=== PATIENT | male | born 1955 | race Caucasian/White ===

== ENCOUNTER → 2016-10-03 | Outpatient (CLI) | payer MEDICARE, OTHER ==
[~2016-10-03] MED LIST: AMOX1TAB12 PO; AMOX500C2 PO; CYCL10TA9 PO; DOCU250C75 PO; DULO20CA PO; DULO30CA48 PO; ETAN50DI2 SQ; HYDR-3812 PO; MORP-33 PO; MORP15TA69 PO; NAPR500T3 PO; NAPR500T8 PO; PANT40TA2 PO; SUCR1TAB36 PO
--- NOTE | 2016-10-03 08:47 | Diagnostic Imaging Report ---
PROCEDURE: CT chest without contrast. TECHNIQUE: Multiple contiguous axial images were obtained through the chest without the use of intravenous contrast. INDICATION: Cough. COPD. FINDINGS: There are prominent emphysematous changes. There is minimal atelectasis or scarring in the posterior right lung base and a small area of atelectasis or scarring in the medial posterior left lung base. There is no significant consolidation or mass otherwise. There is no significant pleural or pericardial effusion. There is no mediastinal mass. No mediastinal lymphadenopathy. The dhaval are not opacified on this unenhanced exam with no obvious hilar mass. Nonspecific borderline sized axillary lymph nodes are seen measuring up to 1.1 cm on the right and 1 cm on the left when measured in short axis. There is a very minimal amount of subcutaneous fat overall. The osseous structures appear grossly unremarkable. IMPRESSION: Emphysema. Minimal atelectasis or scarring in the lung bases. Dictated by: Dictated on workstation # [id number]
== END ==
LOC: RAD 08:11
PROVIDERS: ATTEND Allergy & Immunology
DX: R05 Cough (principal)
CPT/HCPCS: 71250

== ENCOUNTER → 2017-01-16 | Outpatient (CLI) | payer MEDICARE, OTHER ==
[~2017-01-16] MED LIST changes: +DULO30CA3 PO; +HYDR-3820 PO
--- NOTE | 2017-01-16 16:17 | Diagnostic Imaging Report ---
EXAMINATION: Bone survey. INDICATION: Bone pain. FINDINGS: The skull, the cervical spine, the thoracic and lumbar spine demonstrate no lytic lesion or mass. There is no significant abnormality in the ribs. The upper extremities also appear unremarkable. No focal osseous lesion seen in the pelvis. Prominent degenerative changes in the hip joints worse on the left side and suggestion of left SI joint fusion is seen. Degenerative changes in the knee joints also noted, otherwise the lower extremities on both sides demonstrate no focal discrete mass. IMPRESSION: Degenerative changes in the hip joints worse on the left side and suggestion of fusion of the left SI joint noted. Dictated by: Dictated on workstation # [id number]
== END ==
LOC: RAD 14:01
PROVIDERS: ATTEND Family Medicine
DX: M16.0 Bilateral primary osteoarthritis of hip (principal)
CPT/HCPCS: 77075

== ENCOUNTER → 2017-01-29 | Outpatient (CLI) | payer MEDICARE, OTHER ==
[~2017-01-29] MED LIST changes: -NAPR500T3 PO; +NAPR500T4 PO
--- NOTE | 2017-01-29 15:47 | Diagnostic Imaging Report ---
EXAMINATION: PET-CT TECHNIQUE: Serum glucose level at the time of the study is: 127 mg/dL. 13.1 mCi of FDG was administered intravenously followed by obtaining PET images with corresponding noncontrast CT scan images. The CT scan was performed for anatomic correlation and attenuation correction and was not performed according to the diagnostic protocol of the areas covered. The scan was performed from the head to mid thighs. INDICATION: Abnormal weight loss. FINDINGS: There is symmetric FDG uptake in the brain. There is mild asymmetric FDG uptake in the nasopharynx seen with no definitive asymmetry seen on the correlating localizer CT scan, probably physiologic or inflammatory related. There is minimal hypermetabolism noted in mildly enlarged lymph nodes within the axillae with maximum SUV levels below 3. Etiology is indeterminate. The largest lymph node in the right axilla is 2.6 x 1.2 cm in maximum axial dimensions. Slightly smaller left axillary lymph nodes are seen. There is minimal hypermetabolism also noted in the right hilum. Emphysema changes are seen in the lungs. There is no hypermetabolic mass seen within the lungs. There is prominent FDG uptake seen in the cecum and ascending colon with no definite underlying mass seen on the localizer CT. This is associated with maximum SUV of 7. Urinary tract excretion of the tracer is also seen with intense activity in the bladder and the renal collecting system. There is no definite hypermetabolic mass in the abdomen seen. There is minimal FDG uptake seen along the medial aspect of the skin and subcutaneous tissues in the arms also noted. Minimal areas of activity are also seen involving the shoulders, the elbows and the wrists. This could relate to mild arthritis. IMPRESSION: 1. Nonspecific minimally enlarged lymph nodes in the axillae bilaterally with slight hypermetabolism. There is also slight nonspecific hypermetabolism along the subcutaneous tissues in the medial aspect of the arm on both sides. Correlate for possible underlying cellulitis or dermatitis. Mildly enlarged lymph nodes with minimally increased FDG uptake can be seen in some indolent lymphomas. 2. Emphysema. 3. Moderate intensity of uptake seen in the cecum and ascending colon is probably physiologic. Evaluation with colonoscopy is recommended to ensure lack of associated underlying mucosal mass. 4. Mild increased activity is seen in joints around the shoulders, the wrists, and the MCP joints. Correlate for potential underlying inflammatory arthritis. Dictated by: Dictated on workstation # [id number]
== END ==
LOC: RAD 10:42
PROVIDERS: ATTEND Internal Medicine Hematology & Oncology
DX: J43.9 Emphysema, unspecified (principal); R63.4 Abnormal weight loss; M54.2 Cervicalgia; R59.0 Localized enlarged lymph nodes

== ENCOUNTER → 2017-01-30 | Outpatient (CLI) | payer MEDICARE, OTHER ==
[~2017-01-30] MED LIST changes: +BARIUM SUSPENSION 2.1% (VANILLA SILQ) 450 ML PO ONE; +CATHETER FLUSH 10 ML SYR IV PRN; -DULO30CA3 PO; +GADOBUTROL 10 MMOL/10 ML (GADAVIST) VIAL IV ONE; -HYDR-3820 PO; +IOHEXOL 350 MG/ML 100 ML (OMNIPAQUE 350) VIAL IV ONE; +NAPR500T3 PO; -NAPR500T4 PO; +NS 100 ML (IVPB) BAG IV ONE
--- NOTE | 2017-01-30 13:45 | Diagnostic Imaging Report ---
PROCEDURE: CT chest with contrast, CT abdomen and pelvis with and without contrast. TECHNIQUE: Pre and post intravenous contrast axial imaging of the abdomen and pelvis and post contrast axial imaging of the chest were performed. INDICATION: Weight loss. Neck pain. Adenopathy. 100 mL of Omnipaque 350 is administered intravenously. FINDINGS: CT chest: Prominent emphysema changes are seen in the lungs. There is minimal atelectasis or scarring in the right lung base. No significant consolidation or mass. No suspicious pulmonary nodule. The thoracic aorta is normal in caliber. The heart size is normal. There is no pericardial or pleural effusion. There is a mildly enlarged right hilar lymph node measuring 1.2 cm and mildly enlarged subaortic lymph node measuring 1.4 cm in size. Borderline aortopulmonary window lymph node measuring 0.9 cm in size is seen. There are bilateral mildly enlarged axillary lymph nodes up to 1.4 cm in the right axilla and 1.2 cm in the left axilla. All these lymph node measurements are obtained in short axis. There is very minimal degree of FDG uptake seen on recent PET in these mildly enlarged lymph nodes. This may favor inflammatory or infectious etiology. Low-grade indolent lymphomas can, however, be associated with such imaging picture. CT abdomen and pelvis: The liver, the gallbladder, the spleen, the pancreas and the adrenal glands appear unremarkable. The kidneys have symmetric enhancement and contrast excretion. There is no hydronephrosis. The unenhanced phase demonstrates nonobstructive kidney stones up to 4 mm in the lower pole of the left kidney and 2 mm stone in the mid left kidney. There is a mild infrarenal abdominal aortic aneurysm measuring 2.5 cm in caliber. There is ectasia of the common iliac arteries also noted. There is a nonspecific minimally enlarged 1.2 cm left para-aortic lymph node seen below the renal vessels level. Note on the recent PET of increased FDG uptake in the cecum and ascending colon is seen. This has mixed fecal material and oral contrast on this exam with no definite underlying mass noted. Colonoscopy evaluation can be helpful. The prostate is enlarged measuring 6 cm in transverse dimension. Tiny amount of pelvic free fluid is seen. The osseous structures demonstrate early fusion of the SI joints. IMPRESSION: CT chest: 1. Emphysema. 2. Minimally enlarged axillary, mediastinal and right hilar lymph nodes. These demonstrated minimal hypermetabolism on recent PET. This may favor inflammatory or infectious etiology, although indolent low-grade lymphomas could have such imaging features. CT abdomen and pelvis: 1. Minimally enlarged left para-aortic lymph node up to 1.2 cm in size is seen. 2. Mild aneurysmal dilatation/ectasia of the infra-abdominal aorta up to 2.5 cm in size. 3. Enlarged prostate. 4. Fused SI joints. Dictated by: Dictated on workstation # [id number]
--- NOTE | 2017-01-30 14:09 | Diagnostic Imaging Report ---
PROCEDURE: MR imaging cervical spine with and without contrast. TECHNIQUE: Multiplanar and multisequence MRI of the cervical spine was performed with and without contrast. INDICATION: Neck pain. 5 mL of Gadovist is administered intravenously. FINDINGS: The alignment of the cervical spine is satisfactory. The vertebral body heights are preserved. There is disc desiccation at all levels with no significant disc height loss. The bone marrow signal demonstrates minimal heterogeneity with no suspicious focal lesion, however. There is suggestion of fusion of the facet joints bilaterally at C5/C6 level and right facet fusion of C2-C4 levels. Also C2/C3 facet joint on the left appears to be fused. The vertebral bodies demonstrate no definite fusion. There is normal caliber and contour and signal of the spinal cord. There is a slight deformity of the upper aspect of the odontoid process which could be related to old injury or potentially congenital. No bone marrow edema or acute abnormality is evident. No widening of the predental space. There is mild thickening of the posterior ligaments posterior to the dens without compromise of the spinal canal. There is T2 hyperintense signal in the right mastoid air cells. This is a nonspecific finding but in the appropriate clinical setting could correlate with mastoiditis. C2/C3: No disc herniation. No spinal canal or foraminal stenosis. C3/C4: No disc herniation. No spinal canal stenosis. No foraminal narrowing. C4/C5: No disc herniation or spinal canal stenosis. There is foraminal narrowing of mild to moderate degree only on the right side. C5/C6: No disc herniation or spinal canal stenosis. No foraminal narrowing. C6/C7: There is a minimal disc spur complex with no spinal canal stenosis. No foraminal stenosis. C7/T1: Unremarkable. IMPRESSION: 1. Deformity of the dens and posterior ligamentous thickening is probably related to old injury. 2. Multilevel bilateral fusion of the facet joints is seen in the cervical spine. This could be posttraumatic or secondary to inflammatory arthritis. 3. Fluid signal suggestive of secretions in the right mastoid air cells. In the appropriate clinical setting, this could correlate with mastoiditis. Dictated by: Dictated on workstation # [id number]
== END ==
LOC: RAD 07:26
PROVIDERS: ATTEND Internal Medicine Hematology & Oncology
DX: M47.812 Spondylosis without myelopathy or radiculopathy, cervical region (principal); J43.9 Emphysema, unspecified; N40.0 Benign prostatic hyperplasia without lower urinary tract symptoms; R63.4 Abnormal weight loss
CPT/HCPCS: 71260; 72156; 74178

== ENCOUNTER 2017-02-06 05:37 | Outpatient (CLI) | payer MEDICARE, OTHER ==
[~2017-02-06] VITALS: Ht 185.4 cm; Wt 54.7 kg
[~2017-02-06 05:37] MED LIST changes: -BARIUM SUSPENSION 2.1% (VANILLA SILQ) 450 ML PO ONE; -CATHETER FLUSH 10 ML SYR IV PRN; -GADOBUTROL 10 MMOL/10 ML (GADAVIST) VIAL IV ONE; -IOHEXOL 350 MG/ML 100 ML (OMNIPAQUE 350) VIAL IV ONE; -NS 100 ML (IVPB) BAG IV ONE
[2017-02-06] MEDS ORDERED: DULO30CA3 PO (10:43)
[2017-02-06] MEDS ORDERED: CYCL10TA9 PO (10:43)
== END 2017-02-06 11:00 ==
LOC: PREOP 05:37
PROVIDERS: ATTEND Surgery
DX: Z01.818 Encounter for other preprocedural examination (principal); R93.3 Abnormal findings on diagnostic imaging of other parts of digestive tract; R59.9 Enlarged lymph nodes, unspecified

== ENCOUNTER 2017-02-07 11:33 | Outpatient (RCR) | payer MEDICARE, OTHER ==
[2017-01-23 10:11] LABS: BASOPHILS % (AUTO) 0 % (0-10); EOSINOPHILS # (AUTO) 0.2 10^3/uL (0.0-0.3); EOSINOPHILS % (AUTO) 3 % (0-10); LYMPHOCYTES # (AUTO) 2.4 X 10^3 (1.0-4.0); LYMPHOCYTES % (AUTO) 32 % (12-44); MEAN CORPUSCULAR HEMOGLOBIN 22 PG (25-34); MEAN CORPUSCULAR HGB CONC 30 G/DL (32-36); MEAN CORPUSCULAR VOLUME 75 FL (80-99); MEAN PLATELET VOLUME 7.6 FL (7.4-10.4); MONOCYTES # (AUTO) 0.6 X 10^3 (0.0-1.0); MONOCYTES % (AUTO) 9 % (0-12); NEUTROPHILS # (AUTO) 4.1 X 10^3 (1.8-7.8); NEUTROPHILS % (AUTO) 56 % (42-75); PLATELET COUNT 624 10^3/uL (130-400); RED BLOOD COUNT 3.64 10^6/uL (4.35-5.85); RED CELL DISTRIBUTION WIDTH 16.9 % (10.0-14.5); WHITE BLOOD COUNT 7.3 10^3/uL (4.3-11.0)
[2017-01-23 10:57] LABS: ALANINE AMINOTRANSFERASE 9 U/L (0-55); ALBUMIN 3.5 GM/DL (3.2-4.5); ANION GAP 10 MMOL/L (5-14); ASPARTATE AMINO TRANSFERASE 13 U/L (5-34); BILIRUBIN,TOTAL 0.2 MG/DL (0.1-1.0); BLOOD UREA NITROGEN 18 MG/DL (7-18); BUN/CREATININE RATIO 19; CALCIUM 9.7 MG/DL (8.5-10.1); CARBON DIOXIDE 25 MMOL/L (21-32); CHLORIDE 101 MMOL/L (98-107); CREATININE SERUM 0.96 MG/DL (0.60-1.30); GFR ESTIMATED > 60; GLUCOSE 98 MG/DL (70-105); SODIUM 136 MMOL/L (135-145); TOTAL PROTEIN 9.2 GM/DL (6.4-8.2)
[2017-01-23 11:18] LABS: PEP REPORT SEE PATH REPORT
[2017-01-23 11:41] LABS: ERYTHROCYTE SEDIMENTATION RATE > 140 MM/HR (0-30)
[2017-01-23 14:01] LABS: %SAT TOTAL IRON BINDING CAPIC 6 % (15-50); TIBC 254 ug/dL (280-380)
[2017-01-24 07:16] LABS: UIBC 240 ug/dL
[2017-01-24 07:17] LABS: IMMUNOGLOBULIN IGA 469 mg/dL (71-263); IMMUNOGLOBULIN IGG 2495 mg/dL (672-1680)
[2017-01-24 09:43] LABS: IMMUNOGLOBULIN IGM 205 mg/dL (47-209)
[2017-01-26 07:32] LABS: CLIN PATHOLOGY REPORT FOOTNOTE; SERUM PROTEIN ELEC DETAIL L-17-0009057
[2017-01-30 09:40] LABS: BASOPHILS % (AUTO) 0 % (0-10); EOSINOPHILS # (AUTO) 0.2 10^3/uL (0.0-0.3); EOSINOPHILS % (AUTO) 2 % (0-10); LYMPHOCYTES # (AUTO) 1.8 X 10^3 (1.0-4.0); LYMPHOCYTES % (AUTO) 27 % (12-44); MEAN CORPUSCULAR HEMOGLOBIN 22 PG (25-34); MEAN CORPUSCULAR HGB CONC 30 G/DL (32-36); MEAN CORPUSCULAR VOLUME 75 FL (80-99); MEAN PLATELET VOLUME 7.8 FL (7.4-10.4); MONOCYTES # (AUTO) 0.5 X 10^3 (0.0-1.0); MONOCYTES % (AUTO) 7 % (0-12); NEUTROPHILS # (AUTO) 4.4 X 10^3 (1.8-7.8); NEUTROPHILS % (AUTO) 64 % (42-75); PLATELET COUNT 628 10^3/uL (130-400); RED BLOOD COUNT 3.74 10^6/uL (4.35-5.85); RED CELL DISTRIBUTION WIDTH 17.2 % (10.0-14.5); WHITE BLOOD COUNT 6.9 10^3/uL (4.3-11.0)
[2017-01-31 05:27] LABS: LIGHT CHAIN KAPPA SERUM QUANT 138.93 mg/L (3.30-19.40); LIGHT CHAIN LAMBDA SERUM QUANT 65.81 mg/L (5.71-26.30)
[2017-02-01 08:03] LABS: ANATOMIC PATH ADDENDUM REPORT FOOTNOTE
[~2017-02-07 11:33] MED LIST changes: +DULO30CA3 PO; +FERRIC CARBOXYMALTOSE (CANCER) 750 MG in NS (IVPB) CANCER CENTER 250 ML IV SCH; -NAPR500T3 PO; +NAPR500T4 PO
[2017-02-08] MEDS ORDERED: HYDR-3820 PO (14:27)
[2017-02-11 12:33] LABS: LIGHT CHAIN KAPPA SERUM QUANT 138.93 H MG/L (3.30-19.40); LIGHT CHAIN LAMBDA SERUM QUANT 65.81 H MG/L (5.71-26.30)
== END 2017-02-21 16:49 | disposition home or self-care (01) ==
LOC: ONC 11:33
PROVIDERS: ATTEND Internal Medicine Hematology & Oncology
DX: D50.9 Iron deficiency anemia, unspecified (principal); D47.3 Essential (hemorrhagic) thrombocythemia; R63.4 Abnormal weight loss; R59.0 Localized enlarged lymph nodes; D89.2 Hypergammaglobulinemia, unspecified; M54.2 Cervicalgia; G89.4 Chronic pain syndrome; L40.59 Other psoriatic arthropathy; M25.562 Pain in left knee; M25.561 Pain in right knee; M25.552 Pain in left hip; M13.89 Other specified arthritis, multiple sites; Z72.0 Tobacco use
CPT/HCPCS: 36415; 80053; 82232; 82728; 82784; 83540; 83883; 84155; 84165; 85025; 85652; 96365; 99214

== ENCOUNTER 2017-02-08 11:32 | Day surgery (SDC) | payer MEDICARE, OTHER ==
[~2017-02-08] VITALS: Ht 185.4 cm; Wt 54.7 kg
[~2017-02-08 11:32] MED LIST changes: -FERRIC CARBOXYMALTOSE (CANCER) 750 MG in NS (IVPB) CANCER CENTER 250 ML IV SCH; +NAPR500T3 PO; -NAPR500T4 PO
[2017-02-08 12:00] VITALS: BP 116/74
--- NOTE | 2017-02-08 12:17 | Progress Note-Pre Operative ---
Pre-Operative Progress Note H&P Reviewed The H&P was reviewed, patient examined and no changes noted. Date Seen by Provider: Feb 08, 2017 Time Seen by Provider: 12:17 Date H&P Reviewed: Feb 08, 2017 Time H&P Reviewed: 12:17 Pre-Operative Diagnosis: left axillary lymphadenopathy. Weight loss. Abnormal PET CT JLUIS CAMARENA MD Feb 08, 2017 12:17 pm
[2017-02-08] MEDS ORDERED: LACTATED RINGERS 1,000 ML IV PRN (12:30)
[2017-02-08] MEDS ORDERED: ceFAZolin 1 GM/NS 50 ML IVPB IV ONE ×2 (12:30)
[2017-02-08] MEDS ORDERED: BUP/EPI 0.25% 1:200,000 (MARCAINE) 10 ML VIAL IJ ONE (12:58)
[2017-02-08] MEDS ORDERED: fentaNYL INJECTION 100 MCG/2 ML AMP ONE (12:59)
[2017-02-08] MEDS ORDERED: SEVOFLURANE (ULTANE) 15 ML INHAL SOLN ONE ×4 (13:07→14:07)
[2017-02-08] MEDS ORDERED: proPOfol 200 MG/20 ML (DIPRIVAN) VIAL IV ONE (13:07)
[2017-02-08] MEDS ORDERED: LIDOCAINE PF 2% 5 ML (XYLOCAINE) VIAL ONE (13:07)
[2017-02-08] MEDS ORDERED: ONDANSETRON 4 MG/2 ML (SDV) Z0FRAN ONE (13:39)
[2017-02-08] MEDS ORDERED: LACTATED RINGERS 1,000 ML IV ONE ×2 (13:41→14:03)
--- NOTE | 2017-02-08 14:26 | Operative Report ---
Operative Report Date of Procedure/Surgery Feb 08, 2017 Surgeon (s) JLUIS CAMARENA MD Driving Teacher (s): Not applicable Post-Operative Diagnosis Left axillary lymphadenopathy Normal colonoscopy Procedure Performed 1. Excision biopsy of left axillary lymph node 2. Colonoscopy to cecum Description of Procedure Anesthesia Type: General Estimated blood loss (mL): Minimal Specimen(s) collected/removed Left axillary lymph node Description of the Procedure Indication for procedure:This is being investigated for profound weight loss and has been found to have generalized lymphadenopathy, the ones over the left axilla being more easily palpable. In addition, PET scan showed increased activity along the right colon and the cecum. To establish a definitive diagnosis, excision biopsy of the palpable left axillary lymph node was offered. To clarify the abnormal PET scan, colonoscopy was also indicated. Informed consent was obtained after reviewing the procedures in detail. Description of procedure: Excision biopsy of left axillary lymph node: He was placed supine on the operating table and general anesthesia induced using a laryngeal mask airway. A gram of Ancef was administered intravenously as prophylaxis against wound infection. Sequential compression devices were placed around his legs, to minimize the risk of venous thrombosis. Left axilla was prepared and draped in the usual sterile manner. Pre--emptying analgesia was established using 0.25 percent Marcaine with epinephrine. A 4 cm incision was made and an enlarged lymph node isolated. Lymphatics were controlled using ligaclips and the lymph node excised intact. It was sent fresh for histologic analysis. Hemostasis was optimized using minimal use of cautery on the incision closed using 3-0 Vicryl for the subcutaneous tissue 4-0 Vicryl for skin, in a subcuticular fashion. Steri-Strips were applied. Colonoscopy: Digital rectal examination was unremarkable. The colonoscope was then introduced into the rectum and advanced all the way up to the cecum. Scope was then withdrawn slowly and the mucosa examined in a systematic fashion and Findings: Very few sigmoid diverticula. No abnormality was found along the right colon of the cecum. He tolerated both procedures well and was estimated before being taken to the recovery room in a stable condition. Findings of the Procedure See operative report Allergies and Home Medications Allergies Coded Allergies: Penicillins (Verified Allergy, Unknown, N/V, 02/06/17) adalimumab (Unverified Allergy, Unknown, 02/28/16) amoxicillin (Verified Allergy, Unknown, HIVES, 02/08/17) clarithromycin (Verified Allergy, Unknown, NAUSEA, 02/08/17) clavulanic acid (Verified Allergy, Unknown, HIVES, 02/08/17) methotrexate (Verified Allergy, Unknown, 01/05/16) levofloxacin (Verified Adverse Reaction, Unknown, NAUSEA, 02/08/17) Home Medications Cyclobenzaprine HCl 10 Mg Tablet, 10 MG PO TID PRN for MUSCLE CRAMPS, (Reported) Docusate Sodium 250 Mg Capsule, 250 MG PO BID, (Reported) Duloxetine HCl 30 Mg Capsule.dr, 30 MG PO BID, (Reported) Hydrocodone/Acetaminophen 1 Each Tablet, 1 TAB PO TID PRN for PAIN, (Reported) Morphine Sulfate 15 Mg Tablet.er, 15 MG PO Q12H, (Reported) JLUIS CAMARENA MD Feb 08, 2017 2:26 pm
[2017-02-08] MEDS ORDERED: HYDR-3820 PO (14:27)
--- NOTE | 2017-02-08 14:28 | Discharge Inst-Simple/Standard ---
Discharge Inst-Standard Discharge Medications New, Converted or Re-Newed RX: RX on Chart Patient Instructions/Follow Up Plan of Care/Instructions/FU: Band-Aid off in 48 hours. We shall call once pathology results become available. No sutures to be removed Activity as Tolerated: Yes Discharge Diet: No Restrictions JLUIS CAMARENA MD Feb 08, 2017 2:28 pm
[2017-02-08] MEDS ORDERED: fentaNYL INJECTION 100 MCG/2 ML AMP IVP PRN (14:30)
[2017-02-08 15:20] VITALS: BP 121/71
[2017-02-08 15:50] VITALS: BP 109/72
[2017-02-08 16:20] VITALS: BP 111/74
== END 2017-02-08 16:20 | disposition home or self-care (01) ==
LOC: SDC 11:32
PROVIDERS: ATTEND Surgery
DX: R63.4 Abnormal weight loss (principal); R59.1 Generalized enlarged lymph nodes; K57.30 Diverticulosis of large intestine without perforation or abscess without bleeding; D50.9 Iron deficiency anemia, unspecified; J44.9 Chronic obstructive pulmonary disease, unspecified; M06.9 Rheumatoid arthritis, unspecified; F17.210 Nicotine dependence, cigarettes, uncomplicated; Z79.899 Other long term (current) drug therapy
CPT/HCPCS: 87081; 88184; 88185; 88305

== ENCOUNTER 2017-03-15 10:10 | Outpatient (RCR) | payer MEDICARE, OTHER ==
[2017-02-25 16:17] LABS: BASOPHILS % (AUTO) 0 % (0-10); EOSINOPHILS # (AUTO) 0.2 10^3/uL (0.0-0.3); EOSINOPHILS % (AUTO) 2 % (0-10); LYMPHOCYTES # (AUTO) 1.4 X 10^3 (1.0-4.0); LYMPHOCYTES % (AUTO) 20 % (12-44); MEAN CORPUSCULAR HEMOGLOBIN 24 PG (25-34); MEAN CORPUSCULAR HGB CONC 30 G/DL (32-36); MEAN CORPUSCULAR VOLUME 80 FL (80-99); MEAN PLATELET VOLUME 7.5 FL (7.4-10.4); MONOCYTES # (AUTO) 0.8 X 10^3 (0.0-1.0); MONOCYTES % (AUTO) 11 % (0-12); NEUTROPHILS # (AUTO) 4.4 X 10^3 (1.8-7.8); NEUTROPHILS % (AUTO) 66 % (42-75); PLATELET COUNT 471 10^3/uL (130-400); RED BLOOD COUNT 3.54 10^6/uL (4.35-5.85); RED CELL DISTRIBUTION WIDTH 21.7 % (10.0-14.5); RETICULOCYTE % 0.55 % (0.50-2.40); WHITE BLOOD COUNT 6.8 10^3/uL (4.3-11.0)
[2017-02-25 16:47] LABS: ALANINE AMINOTRANSFERASE 8 U/L (0-55); ALBUMIN 3.3 GM/DL (3.2-4.5); ANION GAP 10 MMOL/L (5-14); ASPARTATE AMINO TRANSFERASE 11 U/L (5-34); BILIRUBIN,TOTAL 0.2 MG/DL (0.1-1.0); BLOOD UREA NITROGEN 22 MG/DL (7-18); BUN/CREATININE RATIO 24; CALCIUM 9.5 MG/DL (8.5-10.1); CARBON DIOXIDE 23 MMOL/L (21-32); CHLORIDE 104 MMOL/L (98-107); CREATININE SERUM 0.92 MG/DL (0.60-1.30); GFR ESTIMATED > 60; GLUCOSE 89 MG/DL (70-105); POTASSIUM 3.9 MMOL/L (3.6-5.0); SODIUM 137 MMOL/L (135-145); TOTAL PROTEIN 8.5 GM/DL (6.4-8.2)
[2017-02-25 17:01] LABS: %SAT TOTAL IRON BINDING CAPIC 8 % (15-50); TIBC 214 ug/dL (280-380)
[2017-02-25 17:06] LABS: THYROID STIMULATING HORMONE 1.28 UIU/ML (0.35-4.94)
[2017-02-26 07:40] LABS: UIBC 197 ug/dL
[~2017-03-15 10:10] MED LIST changes: +HYDR-3820 PO; -NAPR500T3 PO; +NAPR500T4 PO
[2017-03-15 11:10] LABS: BASOPHILS % (AUTO) 0 % (0-10); EOSINOPHILS # (AUTO) 0.2 10^3/uL (0.0-0.3); EOSINOPHILS % (AUTO) 3 % (0-10); LYMPHOCYTES # (AUTO) 1.7 X 10^3 (1.0-4.0); LYMPHOCYTES % (AUTO) 21 % (12-44); MEAN CORPUSCULAR HEMOGLOBIN 25 PG (25-34); MEAN CORPUSCULAR HGB CONC 30 G/DL (32-36); MEAN CORPUSCULAR VOLUME 81 FL (80-99); MEAN PLATELET VOLUME 8.3 FL (7.4-10.4); MONOCYTES # (AUTO) 0.5 X 10^3 (0.0-1.0); MONOCYTES % (AUTO) 7 % (0-12); NEUTROPHILS # (AUTO) 5.7 X 10^3 (1.8-7.8); NEUTROPHILS % (AUTO) 69 % (42-75); PLATELET COUNT 504 10^3/uL (130-400); RED BLOOD COUNT 3.75 10^6/uL (4.35-5.85); RED CELL DISTRIBUTION WIDTH 20.1 % (10.0-14.5); WHITE BLOOD COUNT 8.2 10^3/uL (4.3-11.0)
== END 2017-03-29 13:46 | disposition home or self-care (01) ==
LOC: ONC 10:10
PROVIDERS: ATTEND Internal Medicine Hematology & Oncology
DX: D50.9 Iron deficiency anemia, unspecified (principal); D47.3 Essential (hemorrhagic) thrombocythemia; R63.4 Abnormal weight loss; R59.0 Localized enlarged lymph nodes; D89.2 Hypergammaglobulinemia, unspecified; M54.2 Cervicalgia; M06.9 Rheumatoid arthritis, unspecified; G89.4 Chronic pain syndrome; L40.59 Other psoriatic arthropathy; M25.562 Pain in left knee; M25.561 Pain in right knee; M25.552 Pain in left hip; M13.89 Other specified arthritis, multiple sites; F17.210 Nicotine dependence, cigarettes, uncomplicated
CPT/HCPCS: 36415; 80053; 80074; 82728; 83540; 84443; 85025; 85045; 86038; 86039; 86430; 99213

== ENCOUNTER 2017-06-20 13:03 | Outpatient (RCR) | payer MEDICARE, OTHER ==
[~2017-06-20 13:03] MED LIST changes: +ACHD5005 PO; -HYDR-3812 PO; +NAPR-915 PO; -NAPR500T4 PO
[2017-06-20 13:22] LABS: ABSOLUTE RETIC # 17 10e9/L (24-90); BASOPHILS % (AUTO) 0 % (0-10); EOSINOPHILS # (AUTO) 0.2 10^3/uL (0.0-0.3); EOSINOPHILS % (AUTO) 2 % (0-10); HEMATOCRIT 33 % (40-54); HEMOGLOBIN 10.5 G/DL (13.3-17.7); LYMPHOCYTES # (AUTO) 2.2 X 10^3 (1.0-4.0); LYMPHOCYTES % (AUTO) 24 % (12-44); MEAN CORPUSCULAR HEMOGLOBIN 27 PG (25-34); MEAN CORPUSCULAR HGB CONC 32 G/DL (32-36); MEAN CORPUSCULAR VOLUME 86 FL (80-99); MEAN PLATELET VOLUME 8.1 FL (7.4-10.4); MONOCYTES # (AUTO) 0.6 X 10^3 (0.0-1.0); MONOCYTES % (AUTO) 6 % (0-12); NEUTROPHILS # (AUTO) 6.3 X 10^3 (1.8-7.8); NEUTROPHILS % (AUTO) 68 % (42-75); PLATELET COUNT 561 10^3/uL (130-400); RED BLOOD COUNT 3.85 10^6/uL (4.35-5.85); RED CELL DISTRIBUTION WIDTH 15.1 % (10.0-14.5); RETICULOCYTE % 0.43 % (0.50-2.40); WHITE BLOOD COUNT 9.2 10^3/uL (4.3-11.0)
[2017-06-20 13:40] LABS: ALANINE AMINOTRANSFERASE 6 U/L (0-55); ALBUMIN 3.6 GM/DL (3.2-4.5); ALKALINE PHOSPHATASE 65 U/L (40-136); BILIRUBIN,TOTAL 0.2 MG/DL (0.1-1.0); BUN/CREATININE RATIO 12; CALCIUM 9.8 MG/DL (8.5-10.1); CARBON DIOXIDE 26 MMOL/L (21-32); CHLORIDE 100 MMOL/L (98-107); CREATININE SERUM 1.09 MG/DL (0.60-1.30); GFR ESTIMATED > 60; GLUCOSE 139 MG/DL (70-105); POTASSIUM 3.6 MMOL/L (3.6-5.0); SODIUM 135 MMOL/L (135-145)
== END 2017-09-18 | disposition home or self-care (01) ==
LOC: ONC 13:03
PROVIDERS: ATTEND Internal Medicine Hematology & Oncology
DX: D50.9 Iron deficiency anemia, unspecified (principal); D47.3 Essential (hemorrhagic) thrombocythemia; R63.4 Abnormal weight loss; R59.0 Localized enlarged lymph nodes; D89.2 Hypergammaglobulinemia, unspecified; M54.2 Cervicalgia; M06.9 Rheumatoid arthritis, unspecified; G89.4 Chronic pain syndrome; L40.59 Other psoriatic arthropathy; M25.562 Pain in left knee; M25.561 Pain in right knee; M25.552 Pain in left hip; M13.89 Other specified arthritis, multiple sites; J43.9 Emphysema, unspecified; N40.0 Benign prostatic hyperplasia without lower urinary tract symptoms; F17.210 Nicotine dependence, cigarettes, uncomplicated
CPT/HCPCS: 36415; 80053; 85025; 85045; 99213

== ENCOUNTER 2018-02-24 13:32 | Outpatient (RCR) | payer MEDICARE, OTHER ==
[2018-02-19] MEDS: IRON SUCROSE INJECTION 300 MG in NS (IVPB) 250 ML IV SCH (13:17)
[2018-02-19 14:50] VITALS: BP 118/74
[2018-02-21] MEDS: IRON SUCROSE INJECTION 300 MG in NS (IVPB) 250 ML IV SCH (13:58)
[2018-02-21 15:40] VITALS: BP 115/69
[~2018-02-24] VITALS: Ht 185.4 cm; Wt 54.7 kg
[2018-02-24 13:55] VITALS: BP 120/71
[2018-02-24] MEDS: IRON SUCROSE INJECTION 300 MG in NS (IVPB) 250 ML IV SCH (13:55)
[2018-02-24 15:49] VITALS: BP 120/71
== END 2018-03-14 | disposition home or self-care (01) ==
LOC: SDC 13:32
PROVIDERS: ATTEND Family Medicine
DX: D50.9 Iron deficiency anemia, unspecified (principal)
CPT/HCPCS: 96365